=== PATIENT | female | born 1955 | race Caucasian/White ===

== ENCOUNTER → 2019-04-30 | Outpatient (CLI) | payer OTHER | END | disposition home or self-care (01) | LOC: CFH 08:10 | PROVIDERS: ATTEND Nurse Practitioner Family | DX: I08.3 Combined rheumatic disorders of mitral, aortic and tricuspid valves (principal); R91.8 Other nonspecific abnormal finding of lung field | CPT/HCPCS: 71250; 93306 ==

== ENCOUNTER → 2019-05-27 | Outpatient (CLI) | payer OTHER | END | disposition home or self-care (01) | LOC: CFH 09:38 | PROVIDERS: ATTEND Nurse Practitioner Family | DX: Z13.820 Encounter for screening for osteoporosis (principal); M81.0 Age-related osteoporosis without current pathological fracture | CPT/HCPCS: 77080 ==

== ENCOUNTER → 2019-08-09 | Outpatient (CLI) | payer OTHER | END | disposition home or self-care (01) | LOC: CFH 08:06 | PROVIDERS: ATTEND Internal Medicine Cardiovascular Disease | DX: R07.89 Other chest pain (principal); R06.02 Shortness of breath | CPT/HCPCS: 78452; 93017; A9502 ==

== ENCOUNTER → 2020-08-17 | Outpatient (CLI) | payer OTHER | END | disposition home or self-care (01) | LOC: CFH 14:19 | PROVIDERS: ATTEND Internal Medicine | DX: R91.1 Solitary pulmonary nodule (principal); Z86.16 Personal history of COVID-19 | CPT/HCPCS: 71250 ==